=== PATIENT | male | born 1950 | race Caucasian/White ===

== ENCOUNTER 2017-07-23 15:57 | Emergency (ER) | payer MEDICARE, OTHER ==
[~2017-07-23] VITALS: Ht 175.3 cm; Wt 88.2 kg
[2017-07-23 16:31] LABS: BASOPHILS % (AUTO) 0.3 % (0-1); EOSINOPHILS # (AUTO) 0.2 X10'3 (0-0.9); EOSINOPHILS % (AUTO) 2.8 % (0-6); HEMATOCRIT 53.1 % (42.0-52.0); LYMPHOCYTES # (AUTO) 1.4 X10'3 (1.1-4.8); LYMPHOCYTES % (AUTO) 23.9 % (21-51); MEAN CORPUSCULAR HEMOGLOBIN 31.5 PG (27.0-31.0); MEAN CORPUSCULAR HGB CONC 34.7 % (33.0-36.5); MEAN CORPUSCULAR VOLUME 90.8 FL (78-98); MEAN PLATELET VOLUME 7.1 FL (7.4-10.4); MONOCYTES % (AUTO) 16.8 % (2-12); NEUTROPHILS # (AUTO) 3.4 X10'3 (1.8-7.7); NEUTROPHILS % (AUTO) 56.2 % (42-75); PLATELET COUNT 261 X10'3 (140-440); RED BLOOD COUNT 5.85 X10'6 (4.70-6.10); RED CELL DISTRIBUTION WIDTH 13.5 % (11.5-14.5)
[2017-07-23 16:37] LABS: HEMOGLOBIN 18.4 g/dl (14.0-17.9)
[2017-07-23 16:40] LABS: INR 1.1 INR; PROTHROMBIN TIME 10.9 SECONDS (9.0-12.0)
[2017-07-23 16:49] LABS: ALANINE AMINOTRANSFERASE 62 U/L (12-78); ALBUMIN 4.2 G/DL (3.4-5.0); ALBUMIN/GLOBULIN RATIO 0.9 (1.1-1.5); ALKALINE PHOSPHATASE 105 IU/L (46-116); ANION GAP 13 (8-16); ASPARTATE AMINO TRANSFERASE 34 U/L (10-37); BILIRUBIN,TOTAL 0.8 MG/DL (0.1-1.0); BLOOD UREA NITROGEN 32 MG/DL (7-18); BUN/CREATININE RATIO 14.7 (5.4-32.0); CALCIUM 9.3 MG/DL (8.5-10.1); CHLORIDE 101 MMOL/L (99-107); CREATININE 2.17 MG/DL (0.60-1.10); GLUCOSE 136 MG/DL (70-104); POTASSIUM 5.3 MMOL/L (3.5-5.1); SODIUM 132 MMOL/L (135-145); TOTAL CARBON DIOXIDE 18.4 MMOL/L (24-32); TOTAL PROTEIN 9.1 G/DL (6.4-8.2); eGFR 30 ML/MIN
[2017-07-23 16:56] LABS: CLARITY,URINE SLIGHTLY CLOUDY (Clear); COLOR,URINE YELLOW (Yellow); GLUCOSE, URINE NEGATIVE (Neg); KETONES,URINE NEGATIVE (Neg); LEUKOCYTE ESTERASE ,URINE NEGATIVE (Neg); NITRITES, URINE NEGATIVE (Neg); OCCULT BLOOD,URINE NEGATIVE (Neg); PH,URINE 5.5 (4.8-8.0); PROTEIN,URINE 100 mg/dl (Neg); UROBILINOGEN,URINE 0.2 E.U/dL (0.2-1.0)
[2017-07-23 17:03] LABS: UA COLLECTION TYPE CLN CATCH MIDSTREAM
[2017-07-23] MEDS ORDERED: normal saline 1000ML IV soln IVB ONE (17:05)
[2017-07-23 17:10] LABS: COARSE GRANULAR CAST 0-3 /LPF (NEGATIVE); MUCUS STRANDS FEW /LPF (Neg); SQUAMOUS EPITHELIAL CELL,UR FEW /LPF (FEW)
[2017-07-23 17:11] LABS: AMORPHOUS URATES 1+; BACTERIA,URINE 1+ /HPF (Neg); RBC,URINE NONE SEEN /HPF (0-2); WBC,URINE NONE SEEN /HPF (0-4)
[2017-07-23 17:27] LABS: TOTAL CELLS COUNTED 100
[2017-07-23 17:28] LABS: PLATELET ESTIMATE NORMAL
[2017-07-23 17:55] VITALS: BP 155/94
[2017-07-24 08:04] LABS: C DIFF ANTIGEN NEGATIVE (NEGATIVE); C DIFF SPECIMEN=DIARRHEA? ACCEPTABLE; C DIFFICILE TOXINS A&B NEGATIVE (Neg)
[2017-07-25] MEDS ORDERED: ONDA8TAB9 PO (03:24)
[2017-07-25] MEDS ORDERED: HYDR-3965 PO (03:24)
== END 2017-07-23 19:12 | disposition home or self-care (01) ==
LOC: ER 15:57
DX: R19.7 Diarrhea, unspecified (principal); E87.5 Hyperkalemia; E86.0 Dehydration; K51.90 Ulcerative colitis, unspecified, without complications
CPT/HCPCS: 36415; 80053; 81001; 85025; 85610; 87045; 87046; 87324; 87449; 96360; 99284; J7030

== ENCOUNTER 2021-07-09 09:45 | Inpatient (IN) | payer MEDICARE ==
[~2021-07-09] VITALS: Ht 175.3 cm; Wt 84.5 kg
[~2021-07-09 09:45] MED LIST: ONDA8TAB9 PO
[2021-07-09] MEDS ORDERED: normal saline 1000ML IV soln IVB ONE ×2 (12:55→13:55)
[2021-07-09 13:24] LABS: BASOPHILS % (AUTO) 0.3 % (0-1); EOSINOPHILS # (AUTO) 0.1 X10'3 (0-0.9); EOSINOPHILS % (AUTO) 1.2 % (0-6); HEMATOCRIT 50.5 % (42.0-52.0); HEMOGLOBIN 17.2 g/dl (14.0-17.9); LYMPHOCYTES # (AUTO) 0.8 X10'3 (1.1-4.8); MEAN CORPUSCULAR HEMOGLOBIN 30.8 PG (27.0-31.0); MEAN CORPUSCULAR VOLUME 90.6 FL (78-98); MEAN PLATELET VOLUME 7.6 FL (7.4-10.4); MONOCYTES # (AUTO) 0.9 X10'3 (0-0.9); MONOCYTES % (AUTO) 20.8 % (2-12); NEUTROPHILS # (AUTO) 2.6 X10'3 (1.8-7.7); NEUTROPHILS % (AUTO) 59.7 % (42-75); PLATELET COUNT 228 X10'3 (140-440); RED BLOOD COUNT 5.57 X10'6 (4.70-6.10); RED CELL DISTRIBUTION WIDTH 13.4 % (11.5-14.5); WHITE BLOOD COUNT 4.4 X10'3 (4.5-11.0)
[2021-07-09 13:34] LABS: ALANINE AMINOTRANSFERASE 39 U/L (12-78); ALBUMIN 3.6 G/DL (3.4-5.0); ALBUMIN/GLOBULIN RATIO 0.8 (1.1-1.5); ALKALINE PHOSPHATASE 85 IU/L (46-116); ANION GAP 12 (8-16); ASPARTATE AMINO TRANSFERASE 29 U/L (10-37); BILIRUBIN,TOTAL 1.1 MG/DL (0.1-1.0); BLOOD UREA NITROGEN 48 MG/DL (7-18); BUN/CREATININE RATIO 18.2 (5.4-32.0); CALCIUM 8.4 MG/DL (8.5-10.1); CHLORIDE 89 MMOL/L (99-107); CREATININE 2.64 MG/DL (0.60-1.10); GLUCOSE 117 MG/DL (70-104); POTASSIUM 4.5 MMOL/L (3.5-5.1); TOTAL CARBON DIOXIDE 19.5 MMOL/L (24-32); TOTAL PROTEIN 8.4 G/DL (6.4-8.2); eGFR 24 ML/MIN
[2021-07-09 13:46] LABS: SODIUM 120 MMOL/L (135-145)
--- NOTE | 2021-07-09 13:47 | NUR ---
lab called pts NA 120 INFORMED THE NURSE AUDREY SCHULTZ
[2021-07-09 14:55] LABS: PLATELET ESTIMATE NORMAL; TOTAL CELLS COUNTED 100
[2021-07-09] MEDS ORDERED: magnesium 2GM in 50ml NS 50 ML IV PRN (15:55)
[2021-07-09] MEDS ORDERED: magnesium 4gm in 100ml NS 100 ML IV PRN (15:55)
[2021-07-09] MEDS ORDERED: acetaminophen 325mg tablet PO PRN (15:55)
[2021-07-09] MEDS ORDERED: potassium CL 10mEq/100ml bag 100 ML IV PRN (15:55)
[2021-07-09] MEDS ORDERED: mag hydrox/Alum hydrox/simeth 30ml oral suspension PO PRN (15:55)
[2021-07-09] MEDS ORDERED: potassium Cl 20 mEq SR tablet PO PRN (15:55)
[2021-07-09] MEDS: normal saline 1000ml 1,000 ML IV SCH (15:55)
[2021-07-09] MEDS ORDERED: ondansetron/PF 4mg/2ml inj IV PRN (15:55)
[2021-07-09] MEDS ORDERED: magnesium hydroxide 30ml (MOM) UD suspension PO PRN (15:55)
[2021-07-09] MEDS ORDERED: magnesium Cl slow-release 64mg tablet PO PRN (15:55)
[2021-07-09] MEDS ORDERED: NO HOME MEDS (16:11)
[2021-07-09 16:22] LABS: MAGNESIUM 2.4 MG/DL (1.5-2.4); POTASSIUM 4.3 MMOL/L (3.5-5.1)
--- NOTE | 2021-07-09 17:34 | NUR ---
dr. ibarra at bedside.
[2021-07-09] MEDS: K and/or MAG REPLACEMENT MC SCH (19:53)
[2021-07-09] MEDS: docusate sod 100mg capsule PO SCH (19:53)
[2021-07-10 02:07] LABS: BASOPHILS % (AUTO) 0.6 % (0-1); EOSINOPHILS # (AUTO) 0.1 X10'3 (0-0.9); EOSINOPHILS % (AUTO) 2.8 % (0-6); HEMOGLOBIN 15.6 g/dl (14.0-17.9); LYMPHOCYTES # (AUTO) 1.2 X10'3 (1.1-4.8); MEAN CORPUSCULAR HEMOGLOBIN 30.7 PG (27.0-31.0); MEAN CORPUSCULAR HGB CONC 33.8 g/dL (33.0-36.5); MEAN CORPUSCULAR VOLUME 90.7 FL (78-98); MEAN PLATELET VOLUME 7.8 FL (7.4-10.4); MONOCYTES # (AUTO) 0.6 X10'3 (0-0.9); MONOCYTES % (AUTO) 18.4 % (2-12); NEUTROPHILS # (AUTO) 1.5 X10'3 (1.8-7.7); NEUTROPHILS % (AUTO) 44.2 % (42-75); PLATELET COUNT 228 X10'3 (140-440); RED BLOOD COUNT 5.08 X10'6 (4.70-6.10); RED CELL DISTRIBUTION WIDTH 13.2 % (11.5-14.5); WHITE BLOOD COUNT 3.5 X10'3 (4.5-11.0)
[2021-07-10 02:31] LABS: ALANINE AMINOTRANSFERASE 34 U/L (12-78); ALBUMIN/GLOBULIN RATIO 0.7 (1.1-1.5); ALKALINE PHOSPHATASE 70 IU/L (46-116); ANION GAP 12 (8-16); ASPARTATE AMINO TRANSFERASE 27 U/L (10-37); BILIRUBIN,TOTAL 0.9 MG/DL (0.1-1.0); BLOOD UREA NITROGEN 49 MG/DL (7-18); BUN/CREATININE RATIO 24.3 (5.4-32.0); CHLORIDE 96 MMOL/L (99-107); CREATININE 2.02 MG/DL (0.60-1.10); GLUCOSE 91 MG/DL (70-104); POTASSIUM 3.4 MMOL/L (3.5-5.1); SODIUM 128 MMOL/L (135-145); TOTAL CARBON DIOXIDE 19.8 MMOL/L (24-32); TOTAL PROTEIN 7.1 G/DL (6.4-8.2); eGFR 33 ML/MIN
[2021-07-10] MEDS: normal saline 1000ml 1,000 ML IV SCH ×2 (03:01→21:55)
[2021-07-10 04:48] VITALS: BP 123/77
[2021-07-10 06:00] VITALS: BP 103/60
--- NOTE | 2021-07-10 06:00 | NUR ---
Patient in room PCU 3011. I have received report from SHAYY Govea and had the opportunity to ask questions and assume patient care.
[2021-07-10] MEDS: docusate sod 100mg capsule PO SCH ×2 (08:00→20:00)
[2021-07-10] MEDS: K and/or MAG REPLACEMENT MC SCH ×2 (08:00→20:00)
[2021-07-10] MEDS: enoxaparin 40mg/0.4ml syringe SUBCUT SCH (08:39)
[2021-07-10 10:45] LABS: C DIFF SPECIMEN=DIARRHEA? ACCEPTABLE; C DIFFICILE TOXINS A&B NEGATIVE (Neg)
[2021-07-10 11:00] VITALS: BP 121/72
--- NOTE | 2021-07-10 12:24 | NUR ---
Cardiac consult: Likely intended to be malnutrition consult as pt with no cardiac hx per EMR and pt reports 2-13 lb wt loss with decreased appetite per malnutrition risk screen with RN. Current documented wt isn't scaled though is stable with reported wt hx per EMR. Pt eating well on regular diet, documented with 75% PO intake first meal. Pt with no documented decrease in muscle strength or edema. Pt currently lacks a minimum of two criteria for malnutrition. Will continue to follow. Addendum: 07/10/21 at [address] Amended: Links added.
[2021-07-10] MEDS: potassium Cl 20 mEq SR tablet PO PRN ×2 (13:38→17:44)
[2021-07-10 15:00] VITALS: BP 131/85
--- NOTE | 2021-07-10 18:45 | NUR ---
Patient in room PCU 3011. I have received report from SHAYY Akbar and had the opportunity to ask questions and assume patient care.
[2021-07-10 19:00] VITALS: BP 131/86
[2021-07-10] MEDS ORDERED: acetaminophen 325mg tablet PO PRN (22:45)
[2021-07-10 23:00] VITALS: BP 128/80
[2021-07-11 03:00] VITALS: BP 130/78
[2021-07-11 06:00] VITALS: BP 139/83
--- NOTE | 2021-07-11 06:14 | NUR ---
Problems reprioritized. Patient report given, questions answered & plan of care reviewed with SHAYY Jolley.
[2021-07-11 07:42] LABS: BASOPHILS % (AUTO) 0.3 % (0-1); EOSINOPHILS # (AUTO) 0.1 X10'3 (0-0.9); EOSINOPHILS % (AUTO) 2.6 % (0-6); HEMATOCRIT 43.5 % (42.0-52.0); HEMOGLOBIN 14.8 g/dl (14.0-17.9); LYMPHOCYTES # (AUTO) 1.3 X10'3 (1.1-4.8); LYMPHOCYTES % (AUTO) 29.9 % (21-51); MEAN CORPUSCULAR HEMOGLOBIN 30.8 PG (27.0-31.0); MEAN CORPUSCULAR HGB CONC 33.9 g/dL (33.0-36.5); MEAN CORPUSCULAR VOLUME 90.9 FL (78-98); MEAN PLATELET VOLUME 7.8 FL (7.4-10.4); MONOCYTES # (AUTO) 0.6 X10'3 (0-0.9); MONOCYTES % (AUTO) 15.1 % (2-12); NEUTROPHILS # (AUTO) 2.2 X10'3 (1.8-7.7); NEUTROPHILS % (AUTO) 52.1 % (42-75); PLATELET COUNT 243 X10'3 (140-440); RED BLOOD COUNT 4.79 X10'6 (4.70-6.10); RED CELL DISTRIBUTION WIDTH 13.5 % (11.5-14.5); WHITE BLOOD COUNT 4.3 X10'3 (4.5-11.0)
[2021-07-11] MEDS: docusate sod 100mg capsule PO SCH (08:00)
[2021-07-11] MEDS: K and/or MAG REPLACEMENT MC SCH (08:00)
[2021-07-11] MEDS: normal saline 1000ml 1,000 ML IV SCH (08:01)
[2021-07-11] MEDS: enoxaparin 40mg/0.4ml syringe SUBCUT SCH (08:02)
[2021-07-11 08:06] LABS: ALANINE AMINOTRANSFERASE 40 U/L (12-78); ALBUMIN 3.1 G/DL (3.4-5.0); ALBUMIN/GLOBULIN RATIO 0.9 (1.1-1.5); ALKALINE PHOSPHATASE 73 IU/L (46-116); ANION GAP 8 (8-16); ASPARTATE AMINO TRANSFERASE 25 U/L (10-37); BILIRUBIN,TOTAL 0.8 MG/DL (0.1-1.0); BLOOD UREA NITROGEN 38 MG/DL (7-18); BUN/CREATININE RATIO 25.2 (5.4-32.0); CALCIUM 7.7 MG/DL (8.5-10.1); CHLORIDE 107 MMOL/L (99-107); CREATININE 1.51 MG/DL (0.60-1.10); GLUCOSE 95 MG/DL (70-104); POTASSIUM 4.6 MMOL/L (3.5-5.1); SODIUM 137 MMOL/L (135-145); TOTAL CARBON DIOXIDE 22.5 MMOL/L (24-32); TOTAL PROTEIN 6.7 G/DL (6.4-8.2); eGFR 46 ML/MIN
[2021-07-11 10:38] LABS: PLATELET ESTIMATE NORMAL; TOTAL CELLS COUNTED 100
[2021-07-11 11:00] VITALS: BP 133/68
--- NOTE | 2021-07-11 13:48 | NUR ---
Pt. leaving AMA Pt. left AMA due to, "being sick of waiting for discharge order." Pt. signed AMA paperwork and IV removed; Pt. aware of risk of leaving AMA. [facility]
== END 2021-07-11 13:45 | disposition left against medical advice (07) | DRG 391 ==
LOC: ER 09:47 → ED HOLD 15:54 → PCU 3S 07-10 05:16
PROVIDERS: ADMIT Family Medicine; ATTEND Family Medicine
DX: A08.4 Viral intestinal infection, unspecified (principal); N17.0 Acute kidney failure with tubular necrosis; E87.1 Hypo-osmolality and hyponatremia; E87.2 Acidosis; E87.6 Hypokalemia; Z53.29 Procedure and treatment not carried out because of patient's decision for other reasons; Z90.49 Acquired absence of other specified parts of digestive tract; Z88.1 Allergy status to other antibiotic agents
CPT/HCPCS: 36415; 74176; 80053; 81001; 83690; 83735; 84132; 85007; 85025; 87081; 87324; 87449; 87635; 96360; 96361; 96374; 99284; 99285; C9803; G0378; J1650; J3490; J7030